=== PATIENT | female | born 1995 | race Caucasian/White ===

== ENCOUNTER 2024-06-28 11:24 | Emergency (ER) | payer MEDICAID, SELFPAY ==
[2024-06-28 11:38] LABS: Microscopic, Urine URINE MICROSCOPIC (MICROSCOPIC)
[2024-06-28 11:40] VITALS: BP 133/86; PULSE 79; RESP 15; TEMP 36.6; O2SAT 96; BMI 49.1
[2024-06-28 11:45] LABS: Appearance,Urine CLEAR (Clear); Bilirubin,Urine Negative (Negative); Blood, Urine Negative (Negative); Color,Urine YELLOW (Yellow); Glucose,Urine (UA) Negative (Negative); Ketones,Urine Negative (Negative); Leukocyte Esterase,Urine Negative (Negative); Nitrate,Urine Negative (Negative); Protein,Urine Negative (Negative); Urobilinogen,Urine 0.2 EU/dl (0.2)
--- NOTE | 2024-06-28 11:52 | ED_ITS ---
<Statement entered by Samuel Banegas MD - 06/28/24 15:56> ANYA Attestation I was consulted by the ANYA, and we discussed the complexity of problems being addressed. CT was deferred but considered in this patient, she said that the pain started during the speculum exam, had some bleeding that is now stopped, this is similar to multiple previous episodes that she has had after speculum exam. I approved the treatment and management plan for this patient's care in the emergency department, thus performing a substantial portion of the medical decision making. Samuel Banegas MD Discharge Plan Disposition Patient Disposition: Home, Self-Care Condition: Good Chief Complaint: Urogenital-Female Referrals Follow up/Referrals: Blair Tiwari [Primary Care Provider] - See instructions Activity Restrictions/Add. Instructions Additional Instructions/Restrictions: Follow-up with [employer] Tylenol or Motrin as needed for pain If symptoms worsen return to ER Clinical Impressions Clinical Impression: Pelvic pain Instructions Patient Instructions: DI for Pelvic Pain Print Language Print Language: Tuvaluan Discharge ED Provider: Samuel Banegas General Adult HPI General Chief complaint: Urogenital-Female Stated complaint: Vag exam 06/27- pelvic pain Time Seen by Provider: 06/28/24 11:27 Mode of Arrival: Ambulatory Source of Information: Patient Description of Symptoms (Recalled from ER Triage Doc. by RN): patient states she had a pelvic exam yesterday and every since then she has had severe pelvic pain that she describes as it feels like something is squeezing and sharp intermittent 9/10 pain History of Present Illness HPI narrative: 29-year-old female presents for pelvic pain. Patient states she has been dealing with pelvic pain for a few months and has been seen by her [employer] and uro- [employer]. Patient states she seen her [employer] yesterday and had a pelvic exam and a Q- tip was used in her cervix and since then she feels like she is having squeezing sharp pelvic pain. Denies bleeding Related Data Allergies Allergy/AdvReac Type Severity Reaction Status Date / Time PCN (PENICILLIN) Allergy Mild I-RASH [facility]02[facility]17 15:[facility] Disclaimer: The information contained in this section may have been updated after the patient was seen, as this information can be updated by other users. Social History , [employer]) Smoking Status: Current every day smoker alcohol intake: never current occupational status: employed Travel in the last 8 weeks?: None ROS Obtained: Yes Systems reviewed as appropriate & no additional complaints except as documented Physical Exam General General appearance: alert and in no apparent distress Respiratory Respiratory exam: Present normal lung sounds bilaterally Cardiovascular Cardiovascular exam: Present regular rate and normal rhythm Abdominal Exam Abdominal exam: Present soft and tenderness Abdominal tenderness: Present suprapubic Neurological Exam Neurological exam: Present alert and oriented X3 Skin Skin exam: Present warm Medical Decision Making Medical Records Medical records reviewed: Yes I reviewed the patient's medical records. Screening: Per USPSTF and CDC recommendations, given the prevalence of disease in our region, it is our hospital?s policy to screen for HIV and viral Hepatitis for all patients aged 18 and over and those with ongoing risk factors. Watson Inquiry Pt receiving controlled substance: No Watson was queried for this patient: No Vital Signs: 06/28/24 11:40 06/28/24 12:58 06/28/24 13:01 Temperature 97.9 F Temperature Source Oral Pulse Rate 62 61 Pulse Rate [Right Radial] 79 Respiratory Rate 15 Blood Pressure 83/38 L 97/39 L Blood Pressure [Right Arm] 133/86 Blood Pressure Mean [Right Arm] 101 Blood Pressure Source [Right Arm] Automatic Cuff Blood Pressure Position [Right Arm] Sitting 02 Sat by Pulse Oximetry 96 99 99 Oxygen Delivery Method Room Air Lab Data Lab results reviewed: Yes I reviewed the patient's lab results. Lab Results 06/28/24 11:33: Urine Color Yellow, Urine Appearance Clear, Urine pH 6.0, Ur Specific [place] 1.020, Urine Protein Negative, Urine Glucose (UA) Negative, Urine Ketones Negative, Urine Blood Negative, Urine Nitrate Negative, Urine Bilirubin Negative, Urine Urobilinogen 0.2, Ur Leukocyte Esterase Negative, Urine RBC None, Urine WBC None, Ur Squamous Epith Cells 10-20, Urine Bacteria Trace 06/28/24 12:14: WBC 6.7, RBC 4.59, Hgb 13.4, Hct 38.2, MCV 83.2, MCH 29.2, MCHC 35.1, RDW 13.0, Plt Count 219, MPV 9.1, Neut % (Auto) 41.3, Lymph % (Auto) 47.1, [place] % (Auto) 6.9, Eos % (Auto) 4.3, Baso % (Auto) 0.4, Neut # (Auto) 2.8, Lymph # (Auto) 3.2, [place] # (Auto) 0.5, Eos # (Auto) 0.3, Baso # (Auto) 0.0, Sodium 138, Potassium 4.2, Chloride 109 H, Carbon Dioxide 25, Anion Gap 8.2, BUN 13, Creatinine 0.70, Estimated Creat Clear 109, Estimated GFR 100, Est GFR ( Amer) 121, Glucose 89, Calcium 9.1, Total Bilirubin 1.2, AST 26, ALT 21, Alkaline Phosphatase 54, Total Protein 7.0, Albumin 4.4, Globulin 2.6, Albumin/Globulin Ratio 1.7, Serum HCG, Qual Negative, HCV Ab JOSH w/Rflx PCR Qn Negative, HIV Ag/Ab Combo Qual Negative 06/28/24 12:14 06/28/24 12:14 Orders (Tests/Meds): ED MEDICATIONS Generic Name Dose Route Start Last Admin Trade Name Freq PRN Reason Stop Dose Admin Oxycodone HCl 5 mg 06/28/24 14:41 Oxycodone 5mg Immediate Release Tablet PO 06/28/24 14:42 ONCE ONE Sodium Chloride 10 ml 06/28/24 11:49 Sodium Chloride 0.9% 10ml Flush Syringe IV 07/28/24 11:48 NEEDED PRN Maintain IV Site Discontinued Medications Generic Name Dose Route Start Last Admin Trade Name Freq PRN Reason Stop Dose Admin Acetaminophen 1,000 mg 06/28/24 13:53 06/28/24 14:02 Acetaminophen 500mg Tab PO 06/28/24 13:54 1,000 mg ONCE ONE Administration Ketorolac Tromethamine 15 mg 06/28/24 13:53 06/28/24 14:02 Ketorolac 30mg/Ml Vial IV 06/28/24 13:54 15 mg ONCE ONE Administration Methocarbamol 500 mg 06/28/24 14:10 06/28/24 14:12 Methocarbamol 500mg Tablet PO 06/28/24 14:11 500 mg ONCE ONE Administration ORDERS Category Date Time Status CBC w/Auto Diff [Complete Blood Count Auto Diff] Stat Lab 06/28/24 12:14 Completed CMP [Comprehensive Metabolic Panel] Stat Lab 06/28/24 12:14 Completed HIV Combo Stat Lab 06/28/24 12:14 Completed Hepatitis C Ab Qual. W/ RFX Stat Lab 06/28/24 12:14 Completed Serum Beta HCG [HCG Qualitative, Serum] Stat Lab 06/28/24 12:14 Completed UA [Urinalysis and Microscopic] Stat Lab 06/28/24 11:33 Completed Medical Decision Narrative: In summary patient is a 29-year-old female who presents to the emergency department for evaluation of pelvic pain. Patient is hemodynamically stable upon arrival, afebrile. Tenderness noted to suprapubic. Differential diagnosis includes pelvic pain, cramping. Initial workup will be conducted with labs, urine. Initial inventions include Toradol, Robaxin, oxycodone and Tylenol given. Initial workup reviewed by pa labs and urine. Upon repeat evaluation pain had improved was able to tolerate p.o, resting comfortably in bed looking at cell phone. Given this patient appropriate for discharge at this time will discharge home with follow-up with [employer] Critical Care Critical Care Time Critical Care Time: No
[2024-06-28 12:10] LABS: Bacteria,Urine Trace /lpf
[2024-06-28 12:25] LABS: Basophils % 0.4 % (0.1-2.0); Eosinophils # 0.3 Kmm3 (0.0-0.4); Eosinophils % 4.3 % (0.1-12.0); Hematocrit 38.2 % (37.0-47.0); Hemoglobin 13.4 g/dL (12.2-16.2); Immature Granulocytes # 0 10^3uL; Immature Granulocytes % 0 %; Lymphocytes # 3.2 K/mm3 (0.7-4.5); Lymphocytes % 47.1 % (10-50); Mean Corpuscular HGB Conc 35.1 g/dL (31.8-35.4); Mean Corpuscular Hemoglobin 29.2 pg (27.0-31.2); Mean Corpuscular Volume 83.2 fl (81-99); Mean Platelet Volume 9.1 fl (7.4-10.4); Monocytes # 0.5 K/mm3 (0.1-1.0); Monocytes % 6.9 % (1.7-9.3); Neutrophils # 2.8 K/mm3 (1.8-7.8); Neutrophils % 41.3 % (37.0-80.0); Nucleated Red Blood Cells # 0 10^3/uL; Nucleated Red Blood Cells % 0 %; Platelet Count 219 K/mm3 (142-424); Red Blood Count 4.59 M/mm3 (4.20-5.40); Red Cell Distribution Width-SD 39.1 fL; White Blood Count 6.7 K/mm3 (4.8-10.8)
[2024-06-28 12:35] LABS: Albumin Level 4.4 g/dl (3.5-5.0); Chloride 109 mmol/L (98-107); Potassium 4.2 mmoL/L (3.5-5.1); Sodium 138 mmol/L (136-145)
[2024-06-28 12:38] LABS: Alanine Aminotransferase 21 U/L (12-78); Albumin/Globulin Ratio 1.7 (1.1-1.8); Alkaline Phosphatase 54 U/L (38-126); Anion Gap 8.2 mEq/L (5-15); Aspartate Amino Transferase 26 U/L (14-36); Bilirubin,Total 1.2 mg/dl (0.2-1.3); Blood Urea Nitrogen 13 mg/dl (7-17); Calcium 9.1 mg/dl (8.4-10.2); Carbon Dioxide 25 mmol/L (22.0-30.0); Creatinine Clearance Estimated 109 mL/min (50-200); Estimated Glomerular Filt Rate 100 ml/min (>60); GFR (African American) 121 ML/MIN (>60); Globulin 2.6 g/dL (1.3-3.2); Glucose 89 mg/dl (74-100)
[2024-06-28 12:58] VITALS: BP 83/38; PULSE 62; O2SAT 99
[2024-06-28 13:01] VITALS: BP 97/39; PULSE 61; O2SAT 99
[2024-06-28 13:18] LABS: HCG Qualitative, Serum Negative (Negative)
[2024-06-28 13:19] LABS: HIV Combo NEGATIVE (Negative)
[2024-06-28 13:39] LABS: Hepatitis C Ab Qual. W/ RFX NEGATIVE (Negative)
[2024-06-28] MEDS: ACETAMINOPHEN 500MG TAB 1000 MG PO (14:02)
[2024-06-28] MEDS: KETOROLAC 30MG/ML VIAL 15 MG IV (14:02)
[2024-06-28] MEDS: METHOCARBAMOL 500MG TABLET 500 MG PO (14:12)
[2024-06-28] MEDS: OXYCODONE 5MG IMMEDIATE RELEASE TABLET 5 MG PO (14:46)
[2024-06-28 14:51] VITALS: BP 102/61; PULSE 71; RESP 15; TEMP 36.7; O2SAT 100
== END 2024-06-28 14:52 | disposition home or self-care (01) ==
PROVIDERS: Nurse Practitioner Family; Emergency Provider Student in an Organized Health Care Education/Training Program; PCP Pediatrics
DX: R10.2 Pelvic and perineal pain (principal); Z11.59 Encounter for screening for other viral diseases; Z11.4 Encounter for screening for human immunodeficiency virus [HIV]
CPT/HCPCS: 80053; 81001; 84703; 85025; 86803; 87389; 96374; 99284; J1885